=== PATIENT | male | born 1945 | race Caucasian/White ===

== ENCOUNTER 2017-08-09 19:34 | Emergency (ER) | payer OTHER ==
[~2017-08-09] VITALS: Ht 185.4 cm; Wt 105.2 kg
[2017-08-09 19:58] VITALS: BP 158/77
[2017-08-09 20:59] LABS: Urine Bilirubin Negative (Negative); Urine Blood 2+ /uL (Negative); Urine Color Yellow (Yellow); Urine Glucose 1+ mg/dL (Normal); Urine Ketone Negative (Negative); Urine Nitrite Negative (Negative); Urine RBC <1 /hpf (0 - 3); Urine Urobilinogen Normal (Negative)
== END 2017-08-10 00:07 | disposition left against medical advice (07) ==
LOC: ER 19:34
DX: R30.0 Dysuria (principal); Z53.21 Procedure and treatment not carried out due to patient leaving prior to being seen by health care provider
CPT/HCPCS: 81001